=== PATIENT | male | born 1960 | race Caucasian/White ===

== ENCOUNTER 2019-03-10 05:22 | Inpatient (IN) | payer OTHER ==
[~2019-03-10] VITALS: Ht 188 cm; Wt 99.6 kg
[2019-03-10] VITALS (14 sets, daily range): BP systolic 111–159; BP diastolic 55–88
[2019-03-10] MEDS ORDERED: TRAMADOL HCL50 MG ORAL (06:00)
[2019-03-10] MEDS ORDERED: ATORVASTATIN CA80 MG ORAL (06:00)
[2019-03-10] MEDS ORDERED: MEGARED OMEGA-1 EAC1 PO (06:00)
[2019-03-10] MEDS ORDERED: ASPIR 8181 MG ORAL (06:00)
[2019-03-10] MEDS ORDERED: Pantoprazole Inj IVP ONE (06:00)
[2019-03-10] MEDS ORDERED: LISINOPRIL20 MG ORAL (06:00)
[2019-03-10] MEDS ORDERED: Vancomycin 1gm/D5W 275ml IVPB ONE ×2 (06:00)
[2019-03-10] MEDS ORDERED: MULTIVITAMINS1 EAC2 ORAL (06:00)
[2019-03-10] MEDS ORDERED: RED YEAST RICE600 M1 PO (06:00)
[2019-03-10] MEDS ORDERED: Pantoprazole Inj ONE (06:36)
[2019-03-10] MEDS ORDERED: Vancomycin 1gm vial IVPB ONE (06:37)
[2019-03-10] MEDS ORDERED: Rocuronium Bromide 50mg/5ml Inj IV ONE (06:37)
[2019-03-10] MEDS ORDERED: LR 1000ml 1,000 ML IVLG SCH (06:40)
--- NOTE | 2019-03-10 06:42 | Anethesia Preoperative Eval ---
Anesthesia Pre-op PMH/ROS General Date of Evaluation: Mar 10, 2019 Time of Evaluation: 07:43 Anesthesiologist: Obie ASA Score: ASA 2 Mallampati Score Class I : Soft palate, uvula, fauces, pillars visible Class II: Soft palate, uvula, fauces visible Class III: Soft palate, base of uvula visible Class IV: Only hard plate visible Mallampati Classification: Class II Surgeon: Ankit Diagnosis: Neck Pain Surgical Procedure: Redo ACDF C4-5, C5-6, C6-7 Anesthesia History: none Family History: no anesthesia problems Allergies: Coded Allergies: No Known Allergies (Unverified , 03/09/19) Medications: see eMAR Patient NPO?: Yes NPO Date: Mar 09, 2019 NPO Time: 1930 Past Medical History Cardiovascular: Reports: HTN, other - HL PSxH Narrative: C Spine SX Anesthesia Pre-op Phys. Exam Physician Exam Last Vital Signs Date Time Temp Pulse Resp B/P (MAP) Pulse Ox O2 Delivery O2 Flow Rate FiO2 03/10/19 06:15 97.0 63 20 132/88 (103) 96 03/10/19 06:09 Room Air Constitutional: NAD Neurologic: CN 2-12 intact Cardiovascular: RRR Respiratory: CTA Gastrointestinal: S/NT/ND Airway Exam Mallampati Score: Class II MO: full ROM: limited Teeth: missing, intact Anesthesia Pre-op A/P Risk Assessment & Plan Assessment: ASA 2 Plan: GA, SED, GlideScope Go Status Change Before Surgery: No Pre-Antibiotics Dru Gram Vancomycin IV Given Within 1 Hr of Incision: Yes Time Given: 08:01 Keyshawn Ragland MD Mar 10, 2019 06:42
[2019-03-10] MEDS ORDERED: Ketorolac 30mg Inj IV PRN ×2 (06:45)
[2019-03-10] MEDS ORDERED: Labetalol 5mg/ml 20ml vial IV PRN (06:45)
[2019-03-10] MEDS ORDERED: Midazolam 2mg/2ml Inj IVP PRN (06:45)
[2019-03-10] MEDS ORDERED: Metoclopramide 10mg/2ml Inj IVP PRN (06:45)
[2019-03-10] MEDS ORDERED: oxyCODONE HCL/Acetaminophen 5/325mg ORAL PRN (06:45)
[2019-03-10] MEDS ORDERED: Acetaminophen (Non formulary) 100 ML IV ONE (06:45)
[2019-03-10] MEDS ORDERED: HYDROcodone/Acetamin 5/325 tab ORAL PRN (06:45)
[2019-03-10] MEDS ORDERED: HYDROcodone/Acetamin 7.5/325 tab ORAL PRN (06:45)
[2019-03-10] MEDS ORDERED: LORazepam Inj 2mg/ml 1ml IV PRN (06:45)
[2019-03-10] MEDS ORDERED: fentaNYL 100 mcg/2 mL IV PRN (06:45)
[2019-03-10] MEDS ORDERED: DiphenhydrAMINE 50mg/ml Inj IVP PRN (06:45)
[2019-03-10] MEDS ORDERED: Hydromorphone 0.5mg/0.5ml inj IVP PRN (06:45)
[2019-03-10] MEDS ORDERED: Atropine Sulfate 0.4mg/ml inj IVP PRN (06:45)
[2019-03-10] MEDS ORDERED: Meperidine 50mg/ml Inj(FOR RIGORS ONLY) IVP PRN (06:45)
[2019-03-10] MEDS ORDERED: Sodium Chloride 10ml vial INJ ONE (07:05)
[2019-03-10] MEDS ORDERED: Lidocaine 1% MPF 10mg/ml 5ml ONE (07:05)
[2019-03-10] MEDS ORDERED: Dexamethasone 4mg/ml vial ONE (07:05)
[2019-03-10] MEDS ORDERED: Ketamine 500mg Inj ONE (07:05)
[2019-03-10] MEDS ORDERED: Thrombin 5000 units spray kit TOPIC ONE (07:17)
[2019-03-10] MEDS ORDERED: Gelfoam Size TOPIC ONE ×3 (07:18→11:05)
[2019-03-10] MEDS ORDERED: Gelfoam Absorbable 1gm powder pkt TOPIC ONE (07:18)
[2019-03-10] MEDS ORDERED: Bupivacaine w/Epi 0.5% 30ml Vial INJ ONE (07:18)
[2019-03-10] MEDS ORDERED: Bacitracin 50000 Units Vial ONE (07:18)
[2019-03-10] MEDS ORDERED: Thrombin 5000 units TOPIC ONE ×3 (07:18→11:05)
[2019-03-10] MEDS ORDERED: Heparin 1000 units/ml 1ml Vial ONE (07:37)
--- NOTE | 2019-03-10 07:49 | Immediate Post-Op Evaluation ---
Immediate Post-Op Evalulation Immediate Post-Op Evalulation Procedure: Redo ACDF C4-5, C5-6, C6-7 Date of Evaluation: Mar 10, 2019 Time of Evaluation: 13:03 IV Fluids: 700 LR Blood Products: 0 Estimated Blood Loss: 75 Urinary Output: 400 Blood Pressure Systolic: 115 Blood Pressure Diastolic: 55 Pulse Rate: 54 Respiratory Rate: 16 O2 Sat by Pulse Oximetry: 99 Temperature (Fahrenheit): 97 Pain Score (1-10): 2 Nausea: No Vomiting: No Complications 0 Patient Status: awake, reacts, patent, extubated, none Hydration Status: adequate Dru Gram Vancomycin IV Given Within 1 Hr of Incision: Yes Time Given: 08:01 Keyshawn Ragland MD Mar 10, 2019 07:49
--- NOTE | 2019-03-10 07:50 | Pre-Procedure Note/Attestation ---
Pre-Procedure Note/Attestation Complete Prior to Procedure Planned Procedure: bilateral Procedure Narrative: Removal of the disc arthroplasty, revision to anterior cervical discectomy and fusion at C4-5, C5-6 and C6-7 level with use of interbody cage, arthrodesis, use of iliac crest autograft cancellous bone, and allograft Attestation I attest that I discussed the nature of the procedure; its benefits; risks and complications; and alternatives (and the risks and benefits of such alternatives ), prior to the procedure, with the patient (or the patient's legal customer contact representative). I attest that, if there was a reasonable possibility of needing a blood transfusion, the patient (or the patient's legal customer contact representative) was given the [place] Department [employer] Services standardized written summary, pursuant to the [place]ito [place] Blood Safety Act ([place] Health and Safety Code # 1645, as amended). I attest that I re-evaluated the patient just prior to the surgery and that there has been no change in the patient's H&P, except as documented below: Riya Pham MD Mar 10, 2019 07:50
[2019-03-10] MEDS ORDERED: LR 1000ml ONE (08:00)
[2019-03-10] MEDS ORDERED: Propofol 1,000mg/ 100ml btl IV ONE (08:00)
[2019-03-10] MEDS ORDERED: Sterile Water Irrig 1000ml IRRIG ONE (08:00)
[2019-03-10] MEDS ORDERED: NS Irrig 1000ml ONE (08:00)
[2019-03-10] MEDS ORDERED: NS Irrig 1000ml IRRIG ONE ×2 (08:16→08:59)
[2019-03-10] MEDS ORDERED: Lidocaine 1% Plain 30 ml INJ ONE (09:52)
[2019-03-10] MEDS ORDERED: fentaNYL 100 mcg/2 mL IV ONE (12:26)
[2019-03-10] MEDS ORDERED: Neostigmine 1mg/ml 10ml Inj ONE (12:28)
[2019-03-10] MEDS ORDERED: Glycopyrrolate 0.2mg/ml 1ml Vial ONE (12:28)
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
[2019-03-10] MEDS ORDERED: Milk of Magnesia 30ml Ud ORAL PRN (13:30)
[2019-03-10] MEDS ORDERED: HYDROmorphone 1mg/ml Carpuject IVP PRN (13:30)
[2019-03-10] MEDS ORDERED: traMADol 50mg tab ORAL PRN (13:30)
[2019-03-10] MEDS ORDERED: Lisinopril 20mg tab ORAL SCH (13:30)
[2019-03-10] MEDS ORDERED: Cyclobenzaprine 10mg Tab ORAL PRN (13:30)
--- NOTE | 2019-03-10 14:10 | NUR ---
NURSE NOTES: Patient came to unit by bed in stable condition. Alert and oriented x4. Complain of pain 7/10 on surgical site and pain medication given by recover nurse. Will continue to monitor. Skin intact and dry. Surgical dressing intact and dry and on cervical collar. IV dressing intact and dry. Belonging given to family member. Bed lowest position. Call light within reach. Will continue to monitor.
--- NOTE | 2019-03-10 14:36 | Diagnostic Imaging Report ---
INDICATION: Pain, intraoperative TECHNIQUE: Intraoperative imaging Fluoroscopy time: 15.4 seconds Total dose: 0.18161 mGym2 Total number of images: 7 COMPARISON: None FINDINGS: Intraoperative images demonstrate localizer marker projected over the C5-6 disc. Subsequent images demonstrate surgical tools projected anterior to the C5-6 and C6-7 discs. Subsequent images document removal of the pre-existing disc prostheses, placement of anterior fusion hardware bridging C4-5, C5-6, C6-7. IMPRESSION: Intraoperative imaging, as described
[2019-03-10] MEDS: NS w/KCl 20mEq 1000ml 1,000 ML IV SCH (15:28)
[2019-03-10] MEDS: HYDROcodone/Acetamin 7.5/325 tab ORAL PRN ×2 (15:29→18:46)
[2019-03-10] MEDS: Docusate Sod/Senna tab ORAL SCH (18:00)
[2019-03-10] MEDS: Docusate 100mg cap ORAL SCH (18:14)
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
--- NOTE | 2019-03-10 19:26 | NUR ---
HAND-OFF: Report given to Mario KEITH. Patient in stable condition.
--- NOTE | 2019-03-10 19:52 | General Progress Note ---
Progress Note Progress Note Neurosurgery Post-op S/ Doing well. Left arm pain resolved. Feels stronger in the left arm O/ Last 24 Hour Vital Signs Date Time Temp Pulse Resp B/P (MAP) Pulse Ox O2 Delivery O2 Flow Rate FiO2 03/10/19 17:15 98.0 100 19 112/73 (86) 97 03/10/19 16:15 97.4 82 21 159/88 (111) 97 03/10/19 15:15 97.5 85 21 122/83 (96) 95 03/10/19 14:45 98.0 66 20 127/71 (89) 98 03/10/19 14:15 97.8 67 21 114/77 (89) 99 03/10/19 14:00 97.2 63 12 121/66 95 Nasal Cannula 3 03/10/19 13:45 69 15 123/66 95 Nasal Cannula 3 03/10/19 13:30 61 10 111/67 95 Nasal Cannula 3 03/10/19 13:20 67 12 134/74 100 Simple Mask 6 03/10/19 13:10 72 14 124/65 99 Simple Mask 6 03/10/19 13:05 56 14 112/56 99 Simple Mask 6 03/10/19 13:02 97.0 55 12 115/55 99 Simple Mask 6 03/10/19 13:01 54 16 99 03/10/19 06:15 97.0 63 20 132/88 (103) 96 03/10/19 06:09 Room Air Alert and oriented x 4 Moves all extremities well Improved strength in the left arm doing well continue cervical collar pain management PT in am pt's updated re care plan Riya Pham MD Mar 10, 2019 19:52
--- NOTE | 2019-03-10 20:48 | General Progress Note ---
Assessment/Plan Status Narrative patient wasa dmmited to undergo PROCEDURE: 1. Right-sided retropharyngeal approach to the anterior spine exposure of C4 through C7 vertebrae. 2. Mobilization of surgical scar, microdissection. Modifier 22 will be used due to difficulty of exposure and the difficulty of surgical dissection. 3. Removal of the hardware from C5-C6 and C6-C7 consistent with Mobi-C disc arthroplasty. 4. Partial corpectomy of C5 vertebrae. 5. Partial corpectomy of C6 vertebrae. 6. Preparation of disc space and removal of scar and heterotopic ossification from C5-C6 and C6-C7 levels. 7. Complete diskectomy and preparation of disk space at C4-C5. 8. Bilateral neural foraminotomies at C4-C5, C5-C6 and C6-C7 levels. 9. Removal of structural cancellous bone graft from the left iliac crest using the Corex system. 10. Interbody fusion and arthrodesis using 8 x 17 x 14 mm titanium PEEK RADHA-C system with 11 mm plates at C4-C5 level under fluoroscopic guidance. 11. Interbody fusion at the C5-C6 and C6-C7 levels using 8 x 16 x 14 mm lordotic titanium PEEK Ascendant spacer. 12. Anterior arthrodesis using 34 mm [place] plate C5 through C7 and use of six 16 mm screws under fluoroscopic guidance. 13. Intraoperative neuromonitoring with dermatomal monitoring upper and lower extremities, electromyography, somatosensory evoked potentials. 14. Intraoperative use, supervision and interpretation of fluoroscopy for localization of spine and spinal instrumentation. 15. [place] of local bone from corpectomy for grafting. 16. Plastic surgical closure of 10 cm cervical incision. Assessment/Plan: perioperative antibiotic prophyalxis painaonctorl DVT prophyalxis with SCd roscoeaubreyelham santos doing well. Subjective Date patient seen: Mar 10, 2019 Time patient seen: 20:46 Constitutional: Reports: no symptoms Allergies: Coded Allergies: No Known Allergies (Unverified , 03/09/19) Subjective feels better has pain no fever no chills no curt stpain Objective Last 24 Hour Vital Signs Date Time Temp Pulse Resp B/P (MAP) Pulse Ox O2 Delivery O2 Flow Rate FiO2 03/10/19 17:15 98.0 100 19 112/73 (86) 97 03/10/19 16:15 97.4 82 21 159/88 (111) 97 03/10/19 15:15 97.5 85 21 122/83 (96) 95 03/10/19 14:45 98.0 66 20 127/71 (89) 98 03/10/19 14:15 97.8 67 21 114/77 (89) 99 03/10/19 14:00 97.2 63 12 121/66 95 Nasal Cannula 3 03/10/19 13:45 69 15 123/66 95 Nasal Cannula 3 03/10/19 13:30 61 10 111/67 95 Nasal Cannula 3 03/10/19 13:20 67 12 134/74 100 Simple Mask 6 03/10/19 13:10 72 14 124/65 99 Simple Mask 6 03/10/19 13:05 56 14 112/56 99 Simple Mask 6 03/10/19 13:02 97.0 55 12 115/55 99 Simple Mask 6 03/10/19 13:01 54 16 99 03/10/19 06:15 97.0 63 20 132/88 (103) 96 03/10/19 06:09 Room Air Intake and Output 03/09/19 03/10/19 19:00 07:00 # Voids 1 Height (Feet): 6 Height (Inches): 2.00 Weight (Pounds): 220 General Appearance: WD/WN Neck: other - wearinfg cervical collar Cardiovascular: normal rate, regular rhythm, no JVD Respiratory/Chest: lungs clear Abdomen: soft Extremities: other - no edema Carmelo Coon MD Mar 10, 2019 20:48
--- NOTE | 2019-03-10 20:49 | General Progress Note ---
Progress Note Progress Note hypertension monitor bp vashti armas bp meds hyperlipid reume lipitor Carmelo Coon MD Mar 10, 2019 20:49
[2019-03-10] MEDS: Vancomycin 1 GM in D5W 275 ML IVPB SCH (21:28)
[2019-03-10] MEDS: Atorvastatin 80mg tab ORAL SCH (21:28)
--- NOTE | 2019-03-10 22:52 | NUR ---
NURSE NOTES: Received report from INNA Coker. Patient is resting comfortably in semi-fowlers position with multiple pillow support. Soft cervical collar in place. Anterior neck dressing is c/d/i. Left lateral hip dressing is c/d/i. Patient voided. No c/o SOB on 3L nasal canula, IS at bedside. Left arm AC IV asymptomatic with fluids running per eMAR. Patient is alert and oriented with at bedside.
[2019-03-11] VITALS: BP 130/85
[2019-03-11] MEDS: NS w/KCl 20mEq 1000ml 1,000 ML IV SCH ×2 (00:25→11:00)
[2019-03-11] MEDS: HYDROcodone/Acetamin 7.5/325 tab ORAL PRN ×2 (05:47→13:54)
[2019-03-11 07:01] LABS: ANION GAP 6 mmol/L (5-15); BLOOD UREA NITROGEN 14 mg/dL (7-18); CALCIUM 10.8 MG/DL (8.5-10.1); CARBON DIOXIDE 28 MMOL/L (21-32); CHLORIDE 106 MMOL/L (98-107); CREATININE 1.2 MG/DL (0.55-1.30); POTASSIUM 4.6 MMOL/L (3.5-5.1); SODIUM 140 MMOL/L (136-145)
--- NOTE | 2019-03-11 07:29 | NUR ---
HAND-OFF: Report given to INNA Higgins. Patient is stable condition.
[2019-03-11 08:00] VITALS: BP 138/83
--- NOTE | 2019-03-11 08:00 | NUR ---
NURSE NOTES: Received report from Mario KEITH. Patient is awake and oriented, no acute distress noted, reporting no pain at this time. Surgical site dressing clean and dry, soft cervical collar in place. SCD's in place. IVF running per order. Updated on plan of care for the day. Side rails upx2, bed low and locked, call light in reach. Will continue to monitor.
[2019-03-11] MEDS: Docusate 100mg cap ORAL SCH ×2 (08:24→18:48)
[2019-03-11] MEDS: Lisinopril 20mg tab ORAL SCH (08:24)
[2019-03-11] MEDS: Vancomycin 1 GM in D5W 275 ML IVPB SCH (08:25)
--- NOTE | 2019-03-11 08:27 | 48 Hour Post Anesthesia Eval ---
Post Anesthesia Evaluation Procedure: Redo ACDF C4-5, C5-6, C6-7 Date of Evaluation: Mar 11, 2019 Time of Evaluation: 08:26 Blood Pressure Systolic: 136 0: 76 Pulse Rate: 72 Respiratory Rate: 20 Temperature (Fahrenheit): 97.6 O2 Sat by Pulse Oximetry: 98 Airway: patent Nausea: No Vomiting: No Pain Intensity: 3 Hydration Status: adequate Cardiopulmonary Status: stable Mental Status/LOC: patient returned to baseline Follow-up Care/Observations: n/a Post-Anesthesia Complications: none Follow-up care needed: N/A Alan Riojas MD Mar 11, 2019 08:27
[2019-03-11] MEDS: Docusate Sod/Senna tab ORAL SCH ×2 (09:00→18:00)
--- NOTE | 2019-03-11 09:05 | NUR ---
PT EVALUATION NOTE Patient seen for initial evaluation, see complete evaluation for details. Patient presents with impaired functional mobility s/p cervical surgery. Patient able to perform bed mobility and transfers with supervision/SBA. Patient able to ambulate 120 ft with supervision, no assistive device. Patient educated in cervical precautions and log roll technique for in/OOB. Patient will benefit from continued skilled inpatient PT intervention to ensure 100% compliance with cervical precautions while performing mobility tasks and to increase independence in transfers and ambulation. Anticipate discharge home once cleared by MD. No DME needs identified at this time. Addendum: 03/11/19 at 1047 by YSABEL FUNG PT Amended: Links added.
[2019-03-11 12:00] VITALS: BP 135/81
[2019-03-11 16:00] VITALS: BP 134/82
--- NOTE | 2019-03-11 18:19 | NUR ---
NURSE NOTES: Received discharge order for tomorrow from Dr. Pham. Reviewed home medications with MD, orders to continue home medications entered.
--- NOTE | 2019-03-11 19:45 | NUR ---
HAND-OFF: Report given to Trish KEITH.
[2019-03-11] MEDS: Atorvastatin 80mg tab ORAL SCH (20:44)
[2019-03-11] MEDS: HYDROcodone/Acetamin 5/325 tab ORAL PRN (20:44)
--- NOTE | 2019-03-12 00:38 | NUR ---
NURSES NOTES Received patient in room, lying in bed, A/OX4, communicative and able to let needs be known. Family at bedside. VS wnl, no outward s/s of distress, unlabored even breathing pattern. Surgical sites, anterior neck and hip clean and intact. Patient has soft C-Collar in place. All 2100 meds given including [place] 5-325 mg for pain 5/10 in surgical areas. Medication effective as patient appeared to be sleeping comfortably at reassessment. SCD reapplied bilaterally. Patient will be continued to be monitored. Bed at lowest level. Call light within reach.
[2019-03-12 04:00] VITALS: BP 129/84
[2019-03-12] MEDS: HYDROcodone/Acetamin 5/325 tab ORAL PRN (05:12)
--- NOTE | 2019-03-12 07:30 | NUR ---
NURSE NOTES: Received report from Trish KEITH. Patient is awake and oriented, reporting no pain at this time. Surgical site dressing clean and dry, soft cervical collar in place. IV intact, locked. Patient up in chair, having breakfast. Needs met at this time, patient's at bedside. Updated on plan of care for the day. Call light within reach. Will continue to monitor.
[2019-03-12 08:00] VITALS: BP 121/74
--- NOTE | 2019-03-12 08:33 | NUR ---
NURSES NOTES: Report given to Gurjit Khan RN
[2019-03-12] MEDS: Docusate Sod/Senna tab ORAL SCH (09:00)
[2019-03-12] MEDS: Lisinopril 20mg tab ORAL SCH (09:10)
[2019-03-12] MEDS: Docusate 100mg cap ORAL SCH (09:10)
[2019-03-12 12:00] VITALS: BP 125/77
[2019-03-12] MEDS: HYDROcodone/Acetamin 7.5/325 tab ORAL PRN (13:18)
--- NOTE | 2019-03-12 14:29 | General Progress Note ---
Progress Note Progress Note Neurosurgeyr S/ Ambulated several times. No radiating pain into the arms. Left-sided arm/ shoulder pain improved. Tolerating po's. O/ Vitals: Last 24 Hour Vital Signs Date Time Temp Pulse Resp B/P (MAP) Pulse Ox O2 Delivery O2 Flow Rate FiO2 03/12/19 12:00 98.5 87 17 125/77 (93) 96 03/12/19 09:10 121/74 03/12/19 09:00 Room Air 03/12/19 08:00 97.8 102 17 121/74 (90) 95 03/12/19 04:00 98.8 74 17 129/84 (99) 95 03/11/19 21:00 Room Air 03/11/19 16:00 97.5 72 17 134/82 (99) 95 Alert and oriented x 4. Speech and voice normal Moves all extremities well Incisions are C/D/I labs: Labs Test 03/11/19 05:30 Sodium Level 140 MMOL/L (136-145) Potassium Level 4.6 MMOL/L (3.5-5.1) Chloride Level 106 MMOL/L (98-107) Carbon Dioxide Level 28 MMOL/L (21-32) Anion Gap 6 mmol/L (5-15) Blood Urea Nitrogen 14 mg/dL (7-18) Creatinine 1.2 MG/DL (0.55-1.30) Estimat Glomerular Filtration Rate > 60 mL/min (>60) Glucose Level 119 MG/DL (74-106) Calcium Level 10.8 MG/DL (8.5-10.1) Magnesium Level 2.2 MG/DL (1.8-2.4) doing well d/c planning D/c plan d/w pt and his and nursing in detail. Continue with cervical brace. Will order cervical bone growth stimulator. Riya Pham MD Mar 12, 2019 14:29
--- NOTE | 2019-03-12 15:08 | NUR ---
NURSE NOTES: Patient discharged without distress. Discharge education/handouts reviewed with patient, patient verbalized understanding of provided education. Patient given all belongings. Patient provided with prescription from Dr. Pham, patient signed for prescription. IV removed intact. Patient escorted off unit via wheelchair by [employer] to private vehicle.
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
== END 2019-03-12 15:00 | disposition home or self-care (01) | DRG 473 ==
LOC: SDSOVERFLO 05:22 → 3E 14:06
PROC: 0RT30ZZ Resection of Cervical Vertebral Disc, Open Approach (ICD-10-PCS; principal; 2019-03-10 07:30)
PROC: 0PP30JZ Removal of Synthetic Substitute from Cervical Vertebra, Open Approach (ICD-10-PCS; principal; 2019-03-10 07:30)
PROC: 0QB30ZZ Excision of Left Pelvic Bone, Open Approach (ICD-10-PCS; principal; 2019-03-10 07:30)
PROC: 0RG20A0 Fusion of 2 or more Cervical Vertebral Joints with Interbody Fusion Device, Anterior Approach, Anterior Column, Open Approach (ICD-10-PCS; principal; 2019-03-10 07:30)
DX: M50.121 Cervical disc disorder at C4-C5 level with radiculopathy (principal); V89.2XXS Person injured in unspecified motor-vehicle accident, traffic, sequela; Z98.890 Other specified postprocedural states; M48.8X2 Other specified spondylopathies, cervical region
CPT/HCPCS: 36415; 72040; 76000; 80048; 83735; 86850; 86900; 86901; 87081; C9399; J2405; J2710; J7030